=== PATIENT | male | born 1985 ===

== ENCOUNTER 2020-10-01 02:06 | Emergency (ER) | payer BC ==
[2020-10-01] MEDS ORDERED: Ibuprofen 800 MG Tab PO ONE (02:43)
[2020-10-01] MEDS ORDERED: Orphenadrine 100 MG Tab.ER PO STA (02:43)
--- NOTE | 2020-10-01 02:46 | EDM.PDOC ---
ED HPI GENERAL MEDICAL PROBLEM - General Chief Complaint: Respiratory Problem Stated Complaint: SIDE PAIN Time Seen by Provider: 10/01/20 02:21 Source of Information: Reports: Patient, Family () History Limitations: Reports: No Limitations - History of Present Illness INITIAL COMMENTS - FREE TEXT/NARRATIVE: Mr. Gavin is a very pleasant 35-year-old gentleman who now presents to the ED with pain to the inferior aspect of his 4-right ribs. He states that he has been coughing and sneezing for the past 2 weeks, likely due to his allergic rhinitis. No recent fever. Last night he developed pain to his lower right ribs, which is made worse if he coughs, sneezes, takes a deep breath, or even moves or twists. No trauma to the area. He has not taken any [id number] or home remedies to address his symptoms. Here in the ED, the patient is found to be hemodynamically stable, afebrile, saturating 95% on room air. He is comfortable if he remains still, but was unco mfortable when asked to sit up from a semirecumbent position. Prior to 2 weeks ago, the patient denies having a recent fever, chills, sore throat, ear pain, nasal or sinus congestion, cough, dyspnea, chest pain, palpitations, nausea, vomiting, constipation, diarrhea, abdominal pain, urinary symptoms, recent weight gain or weight loss, recent bloody bowel movements or black bowel movements, recent joint aches, headaches, or rashes. The patient does not have a PCP. Treatments QUALITY SPECIALIST: Reports: Other (see below) Other Treatments QUALITY SPECIALIST: Zyrtec Right Upper Pain Score (Numeric/FACES): 8 - Related Data Allergies Allergy/AdvReac Type Severity Reaction Status Date / Time No Known Allergies Allergy Verified 10/01/20 02:25 Home Meds: Home Meds Orphenadrine [Norflex] 1 tab PO Q12H PRN #14 tab.er 10/01/20 [Rx] Past Medical History HEENT History: Reports: Allergic Rhinitis Endocrine/Metabolic History: Reports: Obesity/BMI 30+ Social & Family History - Tobacco Use Tobacco Use Status *Q: Never Tobacco User - Alcohol Use Alcohol Use History: No - Recreational Drug Use Recreational Drug Use: Yes Drug Use in Last 12 Months: No Recreational Drug Type: Reports: Marijuana/Hashish (last smoked around 2017) - Living Situation & Occupation Living situation: Reports: , with Spouse, with Family (4 kids) Occupation: Employed ([employer]) ED ROS GENERAL - Review of Systems Review Of Systems: Comprehensive ROS is negative, except as noted in HPI. ED EXAM, GENERAL - Physical Exam Exam: See Below Exam Limited By: No Limitations General Appearance: Alert, WD/WN, Mild Distress (appears uncomfortable when asked to move) Eye Exam: Bilateral Eye: EOMI, Normal Inspection Ears: Normal External Exam, Hearing Grossly Normal Nose: Normal Inspection Throat/Mouth: Normal Inspection, Normal Lips, Normal Voice, No Airway Compromise Head: Atraumatic, Normocephalic Neck: Normal Inspection, Full Range of Motion Respiratory/Chest: No Respiratory Distress, Lungs Clear, Normal Breath Sounds, No Accessory Muscle Use, Other (Reproducible tenderness to palpation of the inferior aspect of the patient's far right ribs). No: Decreased Breath Sounds, Crackles, Rhonchi, Wheezing, Stridor, Prolonged Expiration Cardiovascular: Normal Peripheral Pulses, Regular Rate, Rhythm, No Gallop, No JVD, No Murmur, No Rub Peripheral Pulses: 3+: Radial (L), Radial (R) GI/Abdominal: Normal Bowel Sounds, Soft, Non-Tender, No Organomegaly, No Distention, No Abnormal Bruit, No Mass Back Exam: Normal Inspection, Full Range of Motion. No: CVA Tenderness (L), CVA Tenderness (R) Extremities: Normal Inspection, Normal Range of Motion, Normal Capillary Refill Neurological: Alert, Oriented, Normal Cognition, No Motor/Sensory Deficits Psychiatric: Normal Affect Skin Exam: Warm, Dry, Intact, Normal Color, No Rash Course - Vital Signs Last Recorded V/S: Last Vital Signs Temp 36.1 C 10/01/20 02:31 Pulse 70 10/01/20 02:31 Resp 14 10/01/20 02:31 BP 134/81 10/01/20 02:31 Pulse Ox 95 10/01/20 02:31 - Orders/Labs/Meds Meds: Medications Discontinued Medications Generic Name Dose Route Start Last Admin Trade Name Freq PRN Reason Stop Dose Admin Ibuprofen 800 mg 10/01/20 02:43 10/01/20 02:50 Ibuprofen 800 Mg Tab PO 10/01/20 02:44 800 mg ONETIME ONE Administration Ibuprofen Confirm 10/01/20 02:49 Ibuprofen 800 Mg Tab Administered 10/01/20 02:50 Dose 800 mg .ROUTE .STK-MED ONE Orphenadrine Citrate 100 mg 10/01/20 02:43 10/01/20 02:50 Orphenadrine 100 Mg Tab.Er PO 10/01/20 02:44 100 mg ONETIME STA Administration Orphenadrine Citrate Confirm 10/01/20 02:49 Orphenadrine 100 Mg Tab.Er Administered 10/01/20 02:50 Dose 100 mg .ROUTE .STK-MED ONE - Re-Assessments/Exams Free Text/Narrative Re-Assessment/Exam: 10/01/20 02:43 As above, the patient has been coughing and sneezing, likely due to allergic rhinitis, for the past couple of weeks, then developed pain felt to the inferior aspect of his far right ribs last night. His pain is made worse if he coughs, sneezes, takes a deep breath, or even moves or twists. It is also reproducible with direct palpation to the area, strongly indicating a musculoskeletal etiology. His lungs are clear to auscultation, however, I have ordered a chest x-ray to rule out pneumonia. Provided his chest x-ray is unremarkable, I do not see an indication for blood work. In the meantime, the patient will be started on ibuprofen and Norflex. 10/01/20 03:45 Two-view chest radiograph reviewed. The cardiac silhouette is within normal limits. No pulmonary vascular congestion. No pleural effusions. No focal infiltrate. No pneumothorax. There are numerous scattered sub-centimeter pulmonary nodules, greater in number on the left than the right. Formal read p er the Radiologist pending. 10/01/20 03:49 Chest x-ray results discussed with the patient and his . As above, the patient has a number of sub-centimeter pulmonary nodules, which are an incident al finding, and do not cause pain, however, I do feel he should follow-up with the PCP to undergo a CT of his chest for further evaluation. With respect to his far lower right rib pain, that is musculoskeletal in etiology. As above, the patient has been started on ibuprofen and Norflex, and I will submit a prescription for additional Norflex. Departure - Departure Time of Disposition: 03:50 Disposition: Home, Self-Care 01 Condition: Good Clinical Impression: Rib pain on right side - Discharge Information *PRESCRIPTION DRUG MONITORING PROGRAM REVIEWED*: Not Applicable *COPY OF PRESCRIPTION DRUG MONITORING REPORT IN PATIENT CHRISTY: Not Applicable Prescriptions: Orphenadrine [Norflex] 1 tab PO Q12H PRN #14 tab.er PRN Reason: Muscle Spasm Instructions: Chest Wall Pain Referrals: Ashley Martinez NP [Nurse Practitioner] - Forms: ED Department Discharge Additional Instructions: You were seen in the emergency room for lower right side pain that developed after you were coughing and sneezing for about 2 weeks. Work-up in the ER included a chest x-ray, which found numerous small pulmonary nodules, but no abnormalities that might cause your pain. Based on your history, physical exam, and ER chest x-ray, your lower right rib pain is due to a strain of some muscles caused by your coughing and sneezing. You have been started on the muscle relaxant Norflex, and a prescription for Norflex has been sent to the [facility], located in the [employer] [facility]. Take 1 tablet of Norflex every 12 hours, as prescribed. Norflex works well with ibuprofen. We recommend that you take 3 or 4 tablets (600-800 mg) of [id number] ibuprofen up to every 8 hours, with food, as needed for discomfort. With respect to the pulmonary nodules seen seen on your chest x-ray, we recommend that you follow-up with Ashley Martinez NP, or one of the other providers in the clinic, for further evaluation that will likely involve a CT of your chest. If any other problems, please do not hesitate to return to the ER. Sepsis Event Note (ED) - Evaluation Sepsis Screening Result: No Definite Risk
[2020-10-01] MEDS ORDERED: Ibuprofen 800 MG Tab ONE (02:49)
[2020-10-01] MEDS ORDERED: Orphenadrine 100 MG Tab.ER ONE (02:49)
--- NOTE | 2020-10-01 06:52 | CR ---
Chest: Frontal and lateral views of the chest were obtained. Comparison: No prior chest imaging is available. Heart size and mediastinum are normal. Lungs are clear with no acute parenchymal change. Bony structures are within normal limits for the patient's age. Impression: 1. Nothing acute is seen on 2-view chest x-ray. Diagnostic code #1
== END 2020-10-01 04:01 | disposition home or self-care (01) ==
LOC: JD.ED 02:06
DX: R07.81 Pleurodynia (principal); E66.9 Obesity, unspecified; Z68.38 Body mass index [BMI] 38.0-38.9, adult
CPT/HCPCS: 71046; 99283; A9270